=== PATIENT | female | born 1995 | race African-American/Black ===

== ENCOUNTER 2022-03-08 01:58 | Emergency (ER) | payer MEDICAID ==
[~2022-03-08] VITALS: Ht 165.1 cm; Wt 59.0 kg
[2022-03-08] MEDS ORDERED: LEVETIRACETAM 1000MG PREMIX 100 ML IV ONE (02:30)
[2022-03-08 02:45] LABS: BASOPHILS % 0.8 % (0.0-2.0); EOSINOPHILS % 0.9 % (0.0-5.0); HEMATOCRIT. 35.4 % (36.0-48.0); HEMOGLOBIN. 11.1 g/dL (12.0-16.0); LYMPHOCYTES % 49.6 % (20.0-50.0); MEAN CORPUSCULAR HEMOGLOBIN 26.2 pg (28.0-32.0); MEAN CORPUSCULAR VOLUME 83.1 fL (81.0-99.0); MEAN PLATELET VOLUME 10.2 fl (7.4-10.4); NEUTROPHILS % 37.7 % (40.0-76.0); PLATELET 188 x1000/uL (130-400); RED BLOOD CELL COUNT 4.25 mill/uL (4.2-5.4); RED CELL DISTRIBUTION WIDTH 17.5 % (11.6-14.6)
[2022-03-08 02:55] LABS: CHLORIDE 105 mEq/L (98-107)
[2022-03-08 03:03] LABS: ETHANOL BLOOD < 10 mg/dL; PHOSPHORUS 3.2 mg/dL (2.5-4.9)
[2022-03-08 03:16] LABS: HCG SCREEN NEGATIVE
[2022-03-08 06:00] VITALS: BP 103/66
== END 2022-03-08 06:30 | disposition home or self-care (01) ==
LOC: ER 01:58
DX: G40.909 Epilepsy, unspecified, not intractable, without status epilepticus (principal); R07.89 Other chest pain; R42 Dizziness and giddiness; R06.4 Hyperventilation
CPT/HCPCS: 36415; 80053; 80320; 83735; 84100; 84703; 85025; 93005; 96365; 99284; J1953; G0480